=== PATIENT | male | born 1960 | race Caucasian/White ===

== ENCOUNTER → 2016-11-07 | Outpatient (CLI) | payer OTHER ==
[~2016-11-07] VITALS: Ht 190.5 cm; Wt 148.9 kg
[~2016-11-07] MED LIST: *RESP: ALBUTEROL 2.5 MG/3 ML NEB (PRN) PERIprocedural Use ONLY NEB ONE; ALBI1INJ2 SQ; ATOR20TA15 PO; DO NOT ADM ANY ANTICOAGULANT DRUGS XX PRN; DULO1CAP2 PO; EMPA1TAB PO; FLUMAZENIL 0.5 MG/5 ML VIAL IV PRN; GABA300C3 PO; GABA300C5 PO; GLIM1TAB PO; GLUCTAB OR; HYDR-3533 PO; HYDR25TA5 PO; HYDR50TA5 PO; INSULIN HUMAN REGULAR 1,000 UNITS/10 ML VIAL SQ PRN; LACTATED RINGER'S 1000 ML IV SCH; LISI-515 PO; LISI20 PO; LORT5TAB PO; METF500T4 PO; METO50TA OR; METO50TA PO; METOPROLOL TARTRATE 25 MG TAB PO PRN; MONT10TA2 PO; MULTCHW27 PO; NALOXONE HCL 0.4 MG/ML AMP IV PRN; OMEP20TA OR; OMEP20TA PO; ONDANSETRON HCL 4 MG/2 ML VIAL IV PUSH ONE; PREG25 PO; PROPOFOL 200 MG/20 ML AMP IV ONE; SODIUM CHLORID 0.9% 500 ML IV SCH; SUCCINYLCHOLINE CHLORIDE 200 MG/10 ML VIAL IV ONE; TAB-TAB PO; VENTAER INH; VITA100018 OR; VITA250C3 CHEW; VITA250T32 PO
[2016-11-07 10:27] VITALS: BP 146/92; PULSE 70; RESP 18; TEMP 98.2; O2SAT 94
[2016-11-07 12:27] VITALS: BP 121/70; PULSE 76; RESP 18; TEMP 98.2; O2SAT 96
--- NOTE | 2016-11-07 16:10 | EKG ---
Date Performed: 11/07/2016 Time Performed: 10:08:08 PTAGE: 56 years EKG: Sinus rhythm LOW QRS VOLTAGE IN PRECORDIAL LEADS SEPTAL MYOCARDIAL INFARCTION , OF INDETERMINATE AGE ABNORMAL ECG PREVIOUS TRACING : 05/31/2013 10.27 Compared to prior tracing no significant change DOCTOR: Abhijeet Mayorga Interpretating Date/Time 11/07/2016 16:09:38
== END ==
LOC: HEND 09:16
PROVIDERS: ATTEND Internal Medicine Gastroenterology
DX: K22.70 Barrett's esophagus without dysplasia (principal); K29.50 Unspecified chronic gastritis without bleeding; K31.9 Disease of stomach and duodenum, unspecified; I10 Essential (primary) hypertension
CPT/HCPCS: 43239; 88305; 88312; 93005; 99156; 99157; J0330; J2405; J7613